=== PATIENT | female | born 1950 | race African-American/Black ===

== ENCOUNTER 2017-06-07 06:56 | Day surgery (SDC) | payer OTHER ==
[2017-06-06 12:53] VITALS: BMI 30.2
--- NOTE | 2017-06-07 07:34 | HP ---
History & Physical Update - History History: No Change - Physical Physical: No Change - Assessment Assessment: No Change - Plan Plan: No Change
[2017-06-07 08:12] VITALS: TEMP 97.9
[2017-06-07] MEDS ORDERED: PROPOFOL 20 ML ONE (09:23)
[2017-06-07] MEDS ORDERED: MIDAZOLAM HCL 2 MG/2 ML SINGLE DOSE VIAL ONE ×3 (09:23)
[2017-06-07] MEDS ORDERED: ACETAMINOPHEN INJECTION 100 ML IVPB ONE (09:27)
[2017-06-07] MEDS ORDERED: LIDOCAINE HCL 1%, 10 MG/ML (20ML VIAL) ONE ×2 (09:33→10:17)
[2017-06-07] MEDS ORDERED: BUPIVACAINE HCL/PF 0.5% (5MG/ML) 10 ML VIAL ONE (09:34)
[2017-06-07] MEDS ORDERED: LIDOCAINE HCL 1%, 10 MG/ML (50 mL VIAL) IJ ONE (10:52)
[2017-06-07] MEDS ORDERED: IBUPROFEN 800 MG/8 ML IJ IVPB PRN (12:37)
[2017-06-07] MEDS ORDERED: DEXTROSE 5%-0.45% SALINE 1,000 ML IV SCH (12:45)
[2017-06-07 14:26] VITALS: BP 129/68; PULSE 52
--- NOTE | 2017-06-08 08:57 | PATH ---
Surgical Pathology Report Patient Name: RAAD CANTOR Med. Rec. #: [id number] /Age/Gender: 1950 (Age: 66) / F Account: [id number] Location: [facility] SUR[facility] Taken: 06/07/2017 Received: 06/07/2017 Reported: 06/08/2017 Physicians: Morgan Macias M.D. Specimen(s) Received REMOVED LEAD AND BATTERY Clinical History Stress incontinence Final Diagnosis PRODUCT DEVELOPMENT CHEMIST, REMOVAL: PRODUCT DEVELOPMENT CHEMIST CONSISTENT WITH INTERSTIM BATTERY AND LEAD (GROSS ONLY). Electronically Signed Chet Patterson M.D. Gross Description Received fresh labeled "old lead and battery," is a 4.8 x 4.3 x 0.7 cm mccoy metallic device, consistent with a battery. The specimen has the following inscription: "[employer] InterStim II SN: [id number]." Also received within the same container is a 25 cm in length mccoy metallic portion of wire. No soft tissue is present. No sections are submitted, gross only. /06/07/2017 saudi06/07/2017
--- NOTE | 2017-06-09 10:38 | OP ---
DATE OF OPERATION: 06/07/2017 PREOPERATIVE DIAGNOSIS: Urge urinary incontinence. POSTOPERATIVE DIAGNOSIS: Urge urinary incontinence. PROCEDURE: InterStim battery and lead replacement. ANESTHESIA: IV sedation with local. SURGEON: Morgan Macias MD ESTIMATED BLOOD LOSS: Minimal. SPECIMEN: Old battery and lead. PREOPERATIVE INDICATIONS: The patient is a 66-year-old female who suffers from urinary frequency and urge incontinence. She had previously found relief and response with InterStim stimulation. Over the last several months, however, she has seen a decreased response. The battery is noted to be at end of life. OPERATION: The patient was brought to the OR, placed on the table in the prone position. All pressure points were protected. Patient was given IV sedation and local anesthesia. A timeout was performed. An incision was made over the previous battery site and the battery was identified and removed. The lead itself was also identified. An incision was made over the lead insertion site and this was removed as well. A new finder needle was placed in the right S3 foramen with good anal sariah and toe deflection. No calf rotation was noted. Using the Seldinger technique, the tract was dilated and a quadripolar lead was placed, again tested, with good response in all 4 leads at low amplitude. It also appeared to be ideal on x-ray. This was then tunneled to the previous battery site. A new battery was connected and placed into the pocket. Impedances were checked and noted to be normal. All wounds were closed with Vicryl suture. Wounds were dressed. Patient was woken up. Perla [id number]
== END 2017-06-07 14:10 | disposition home or self-care (01) ==
LOC: JASU-SURG 06:56
PROVIDERS: ATTEND Urology
PROC: 0JH70BZ Insertion of Single Array Stimulator Generator into Back Subcutaneous Tissue and Fascia, Open Approach (ICD-10-PCS; 2017-06-07)
PROC: 01PY0MZ Removal of Neurostimulator Lead from Peripheral Nerve, Open Approach (ICD-10-PCS; 2017-06-07)
PROC: 01HY0MZ Insertion of Neurostimulator Lead into Peripheral Nerve, Open Approach (ICD-10-PCS; 2017-06-07)
PROC: 0JPT0MZ Removal of Stimulator Generator from Trunk Subcutaneous Tissue and Fascia, Open Approach (ICD-10-PCS; principal; 2017-06-07 08:30)
DX: T85.113A Breakdown (mechanical) of implanted electronic neurostimulator, generator, initial encounter (principal); N39.41 Urge incontinence
CPT/HCPCS: 64581; 64590; L8679; L8680; 76000-TC; 88300-TC